=== PATIENT | male | born 1950 | race Caucasian/White ===

== ENCOUNTER 2017-07-01 13:43 | Inpatient (IN) | payer OTHER ==
[~2017-07-01] VITALS: Ht 177.8 cm; Wt 89.2 kg
[2017-07-01] MEDS ORDERED: SODIUM CHLORIDE 0.9% 1,000 ML IV ONE (14:21)
[2017-07-01] MEDS ORDERED: OXYC1TAB7 PO (14:25)
[2017-07-01] MEDS ORDERED: ATOR-2 PO (14:25)
[2017-07-01] MEDS ORDERED: METF500T4 PO (14:25)
[2017-07-01] MEDS ORDERED: PIOG30TA3 PO (14:25)
[2017-07-01] MEDS ORDERED: AMLO10TA2 PO (14:25)
[2017-07-01] MEDS ORDERED: HYDR25TA6 PO (14:25)
[2017-07-01] MEDS ORDERED: GEMF600T3 PO (14:25)
[2017-07-01] MEDS ORDERED: ALLO300T PO (14:25)
[2017-07-01] MEDS ORDERED: METOPROLOL 1 MG/ML, 5ML IVPush ONE (14:30)
[2017-07-01] MEDS ORDERED: SODIUM CHLORIDE FLUSH 10ML SYR IVF ONE (14:30)
[2017-07-01] MEDS ORDERED: METOPROLOL 1 MG/ML, 5ML ONE (14:56)
[2017-07-01 15:05] LABS: HEMATOCRIT 42.2 % (39.2-51.8); HEMOGLOBIN 14.3 g/dL (13.7-18.0); WHITE BLOOD COUNT 5.9 x10^3/uL (3.4-10)
[2017-07-01 15:12] LABS: ASPARTATE AMINO TRANSFERASE 32 U/L (15-37); BLOOD UREA NITROGEN 23 mg/dL (7-18)
[2017-07-01 15:19] LABS: IS PT STATUS REG ER OR PRE ER? YES
[2017-07-01] MEDS ORDERED: HEPARIN 25,000 UNITS/500ML PMX 500 ML ONE (16:17)
[2017-07-01] MEDS ORDERED: HEPARIN 5,000 UNITS/ML, 1ML ONE (16:17)
[2017-07-01] MEDS ORDERED: SODIUM CHLORIDE 0.9% 1,000 ML IV SCH (16:36)
[2017-07-01] MEDS: HEPARIN 25,000 UNITS/500ML PMX 500 ML IV PRN (16:40)
[2017-07-01] MEDS ORDERED: HEPARIN 5,000 UNITS/ML, 1ML IV ONE (17:00)
[2017-07-01] MEDS ORDERED: ONDANSETRON 2MG/ML, 2ML IVPush PRN (17:00)
[2017-07-01] MEDS ORDERED: METOPROLOL 1 MG/ML, 5ML IVPush PRN (17:00)
[2017-07-01] MEDS ORDERED: ACETAMINOPHEN 325 MG TABLET PO PRN (17:00)
[2017-07-01] MEDS ORDERED: morphine SULFATE 10 MG/ML, 1ML IVPush PRN (17:00)
[2017-07-01] MEDS ORDERED: ONDANSETRON ODT 4 MG PO PRN (17:00)
[2017-07-01 17:31] VITALS: BP 148/88
[2017-07-01] MEDS: INSULIN ASPART 100 UNITS/ML, PEN SQ-INSULIN SCH ×2 (18:17→20:53)
[2017-07-01 19:33] VITALS: BP 105/71
[2017-07-01] MEDS: ATORVASTATIN 80 MG TABLET PO SCH (20:52)
[2017-07-01 21:24] LABS: IS PT STATUS REG ER OR PRE ER? NO
[2017-07-01] MEDS: HEPARIN 5,000 UNITS/ML, 1ML IV PRN (23:04)
[2017-07-02 02:43] VITALS: BP 117/82
[2017-07-02 03:42] LABS: HEMATOCRIT 37.1 % (39.2-51.8); HEMOGLOBIN 12.6 g/dL (13.7-18.0); WHITE BLOOD COUNT 4.9 x10^3/uL (3.4-10)
[2017-07-02 03:52] LABS: BLOOD UREA NITROGEN 22 mg/dL (7-18)
[2017-07-02 03:56] LABS: ASPARTATE AMINO TRANSFERASE 21 U/L (15-37); IS PT STATUS REG ER OR PRE ER? NO
[2017-07-02] MEDS: INSULIN ASPART 100 UNITS/ML, PEN SQ-INSULIN SCH ×4 (07:00→21:22)
[2017-07-02 07:30] VITALS: BP 138/85
[2017-07-02 07:46] VITALS: BP 117/79
[2017-07-02] MEDS ORDERED: REGADENOSON 0.4 MG/5 ML SYRINGE ONE (08:20)
[2017-07-02] MEDS: ASPIRIN 325 MG TABLET EC PO SCH (08:26)
[2017-07-02] MEDS: GEMFIBROZIL 600 MG TABLET PO SCH (08:26)
[2017-07-02] MEDS: ALLOPURINOL 100 MG TABLET PO SCH (08:27)
[2017-07-02] MEDS: AMLODIPINE 5 MG TABLET PO SCH (08:31)
[2017-07-02] MEDS ORDERED: MAGNESIUM SULFATE PMX 2GM/50ML 50 ML IV ONE (10:00)
[2017-07-02 14:03] VITALS: BP 112/68
[2017-07-02] MEDS: HEPARIN 5,000 UNITS/ML, 1ML IV PRN (15:22)
[2017-07-02] MEDS: HEPARIN 25,000 UNITS/500ML PMX 500 ML IV PRN (15:28)
[2017-07-02] MEDS: POTASSIUM CHLORIDE 20 MEQ TAB.ER.PRT PO SCH (16:56)
[2017-07-02 19:05] VITALS: BP 118/73
[2017-07-02] MEDS: ATORVASTATIN 80 MG TABLET PO SCH (21:13)
[2017-07-03 01:59] VITALS: BP 120/75
[2017-07-03 04:10] LABS: HEMATOCRIT 38.4 % (39.2-51.8); WHITE BLOOD COUNT 4.5 x10^3/uL (3.4-10)
[2017-07-03 04:20] LABS: BLOOD UREA NITROGEN 21 mg/dL (7-18)
[2017-07-03] MEDS ORDERED: MAGNESIUM SULFATE PMX 2GM/50ML 50 ML IV ONE ×2 (05:30→10:00)
[2017-07-03] MEDS: ASPIRIN 325 MG TABLET EC PO SCH (06:02)
[2017-07-03 08:10] VITALS: BP 130/85
[2017-07-03] MEDS: AMLODIPINE 5 MG TABLET PO SCH (08:25)
[2017-07-03] MEDS: GEMFIBROZIL 600 MG TABLET PO SCH (08:25)
[2017-07-03] MEDS: POTASSIUM CHLORIDE 20 MEQ TAB.ER.PRT PO SCH (08:25)
[2017-07-03] MEDS: INSULIN ASPART 100 UNITS/ML, PEN SQ-INSULIN SCH (08:25)
[2017-07-03] MEDS: ALLOPURINOL 100 MG TABLET PO SCH (08:25)
[2017-07-03] MEDS ORDERED: ASPI-515 PO (09:51)
[2017-07-03] MEDS ORDERED: APIX5TAB PO (09:51)
[2017-07-03] MEDS ORDERED: METO25TA35 PO (09:53)
[2017-07-03] MEDS ORDERED: APIXABAN 5 MG TABLET PO SCH (10:00)
== END 2017-07-03 11:30 | disposition home or self-care (01) | DRG 308 ==
LOC: ED 14:48 → EDIP 15:30 → 5SO 17:21 → DCLOUNGE 07-03 11:10
PROVIDERS: ADMIT Hospitalist; ATTEND Family Medicine
DX: I48.91 Unspecified atrial fibrillation (principal); N17.0 Acute kidney failure with tubular necrosis; D68.59 Other primary thrombophilia; E83.42 Hypomagnesemia; D75.89 Other specified diseases of blood and blood-forming organs; E11.9 Type 2 diabetes mellitus without complications; E78.5 Hyperlipidemia, unspecified; E87.6 Hypokalemia; F17.290 Nicotine dependence, other tobacco product, uncomplicated; I10 Essential (primary) hypertension; Z96.652 Presence of left artificial knee joint; Z79.84 Long term (current) use of oral hypoglycemic drugs; Z79.01 Long term (current) use of anticoagulants; Z82.49 Family history of ischemic heart disease and other diseases of the circulatory system; Z88.0 Allergy status to penicillin; Z88.7 Allergy status to serum and vaccine
CPT/HCPCS: 36415; 71010; 78452; 80048; 80053; 80061; 82607; 82746; 82962; 83735; 83880; 84443; 84484; 85025; 85520; 85610; 93005; 93017; 93306; 96361; 96374; 96375; J1644; J1815; J2785; A9502; C9898; J3475; J7030

== ENCOUNTER 2018-11-23 10:12 | Emergency (ER) | payer OTHER ==
[~2018-11-23] VITALS: Ht 175.3 cm; Wt 88.0 kg
[~2018-11-23 10:12] MED LIST: ALLO300T PO; AMLO10TA8 PO; APIX5TAB PO; ASPI-515 PO; ATOR-2 PO; GEMF600T8 PO; HYDR25TA6 PO; METF500T17 PO; METO25TA35 PO; OXYC1TAB7 PO; PIOG30TA67 PO
--- NOTE | 2018-11-23 10:49 | NUR ---
[facility]
--- NOTE | 2018-11-23 10:50 | NUR ---
Pt changing to gown in ED room 3. NADN. No obvious defecits observed.
[2018-11-23 10:53] LABS: BASOPHILS # (AUTO) 0.03 x10^3/uL (0-0.1); BASOPHILS % (AUTO) 0 % (0-1); EOSINOPHILS # (AUTO) 0.15 x10^3/uL (0-0.4); EOSINOPHILS % (AUTO) 3 % (1-7); LYMPHOCYTES # (AUTO) 0.73 x10^3/uL (1-3.4); LYMPHOCYTES % (AUTO) 12 % (22-44); MD NO; MEAN CORPUSCULAR HEMOGLOBIN 33.3 pg (27.5-34.5); MEAN CORPUSCULAR HGB CONC 33.8 g/dL (33.2-36.2); MEAN CORPUSCULAR VOLUME 98.7 fL (81-97); MEAN PLATELET VOLUME 7.4 fL (7.4-10.4); MONOCYTES # (AUTO) 0.56 x10^3/uL (0.2-0.8); MONOCYTES % (AUTO) 9 % (2-9); NEUTROPHILS # (AUTO) 4.52 x10^3/uL (1.8-6.8); NEUTROPHILS % (AUTO) 76 % (42-75); PLATELET COUNT 287 x10^3/uL (130-400); RED BLOOD COUNT 4.21 x10^6/uL (4.38-5.82); RED CELL DISTRIBUTION WIDTH 14.6 % (9.4-14.8)
[2018-11-23 11:00] LABS: INTERNATIONAL NORMALIZED RATIO 1.09 (0.93-1.1); PROTHROMBIN TIME 11.4 Seconds (9.6-11.5)
[2018-11-23 11:04] LABS: ALBUMIN 4.5 g/dL (3.4-5.0); ANION GAP 8 mmol/L (5-15); CHLORIDE 104 mmol/L (98-107)
[2018-11-23 11:09] LABS: ALANINE AMINOTRANSFERASE 36 U/L (12-78); ALKALINE PHOSPHATASE 114 U/L (45-117); BILIRUBIN,TOTAL 0.6 mg/dL (0.2-1.0); CREATININE 1.16 mg/dL (0.7-1.3); TOTAL PROTEIN 8.7 g/dL (6.4-8.2)
--- NOTE | 2018-11-23 11:23 | NUR ---
Pt presents to ED with c/o right flank pain that has "moved to the front of my abdomen and groin, and I have this bulge here (right flank and right abdomen to right groin, non-tender to palpation)." Pt denies pain with urination, burning with urination, or fevers. Pt denies n/v/d. Pt denies cp, sob, trauma. Pt ambulates with steady gait and balance to bathroom for urine sample.
--- NOTE | 2018-11-23 11:25 | NUR ---
Pt back to room from restroom and connected to manager cardiac, NIBP, and continous pulse ox. All safety measures in place. Call light within reach.
[2018-11-23 11:34] VITALS: BP 152/65
--- NOTE | 2018-11-23 11:39 | NUR ---
PT HAS LABS HOWEVER CT IS WAITING ON IV INSERTION
[2018-11-23 11:54] LABS: MICROSCOPIC AUTO
[2018-11-23 12:01] LABS: CULTURE INDICATED? NO
[2018-11-23] MEDS ORDERED: OMNIPAQUE 350 MG/ML, 100ML BOTTLE ONE (12:27)
--- NOTE | 2018-11-23 13:49 | NUR ---
Sergey given discharge instructions and they have confirmed that they understand the instructions. Patient ambulatory with steady gait. Pt left with all personal belongings, discharge paperwork, and prescriptions.
== END 2018-11-23 14:20 | disposition home or self-care (01) ==
LOC: ED 13:30
DX: R10.11 Right upper quadrant pain (principal); R10.31 Right lower quadrant pain; I10 Essential (primary) hypertension; E11.9 Type 2 diabetes mellitus without complications; I48.91 Unspecified atrial fibrillation; E78.5 Hyperlipidemia, unspecified; F17.200 Nicotine dependence, unspecified, uncomplicated
CPT/HCPCS: 36415; 74177; 80053; 81001; 83690; 85025; 85610; 99284; Q9967

== ENCOUNTER 2018-12-04 10:43 | Emergency (ER) | payer OTHER ==
[~2018-12-04] VITALS: Ht 175.3 cm; Wt 89.7 kg
--- NOTE | 2018-12-04 11:06 | NUR ---
PT AMBULATED INDEPENDENTLY TO ED ROOM 28 FROM LOBBY IN NAD W/ FAMILY MEMBER, PT REPORTS ABD PAIN W/ BULGE X 2 WEEKS. PT STATES HE HAS BEEN EVALUATED IN THE ED FOR SAME AND SEEN HIS PCP TWICE WITHOUT DEFINITIVE DIAGNOSIS.
--- NOTE | 2018-12-04 11:37 | NUR ---
US AT BEDSIDE
--- NOTE | 2018-12-04 11:37 | NUR ---
Gris hodges in [facility] - 12/04/18 at 1137 by MISHA YOLANDAAY AT BEDSIDE
[2018-12-04 12:13] LABS: BASOPHILS # (AUTO) 0.03 x10^3/uL (0-0.1); BASOPHILS % (AUTO) 1 % (0-1); EOSINOPHILS # (AUTO) 0.15 x10^3/uL (0-0.4); EOSINOPHILS % (AUTO) 3 % (1-7); LYMPHOCYTES # (AUTO) 0.79 x10^3/uL (1-3.4); LYMPHOCYTES % (AUTO) 16 % (22-44); MD NO; MEAN CORPUSCULAR HEMOGLOBIN 34.1 pg (27.5-34.5); MEAN CORPUSCULAR HGB CONC 34.7 g/dL (33.2-36.2); MEAN CORPUSCULAR VOLUME 98.3 fL (81-97); MEAN PLATELET VOLUME 7.7 fL (7.4-10.4); MONOCYTES # (AUTO) 0.53 x10^3/uL (0.2-0.8); MONOCYTES % (AUTO) 10 % (2-9); NEUTROPHILS # (AUTO) 3.62 x10^3/uL (1.8-6.8); NEUTROPHILS % (AUTO) 71 % (42-75); PLATELET COUNT 253 x10^3/uL (130-400); RED CELL DISTRIBUTION WIDTH 14.2 % (9.4-14.8)
[2018-12-04 12:22] LABS: ANION GAP 9 mmol/L (5-15); CALCIUM 9.2 mg/dL (8.5-10.1); CHLORIDE 106 mmol/L (98-107)
[2018-12-04 12:24] LABS: ALANINE AMINOTRANSFERASE 39 U/L (12-78); CREATININE 1.27 mg/dL (0.7-1.3)
[2018-12-04 12:33] LABS: ALKALINE PHOSPHATASE 90 U/L (45-117); BILIRUBIN,TOTAL 0.3 mg/dL (0.2-1.0); TOTAL PROTEIN 7.4 g/dL (6.4-8.2)
--- NOTE | 2018-12-04 12:38 | NUR ---
PT UP TO RESTROOM TO PROVIDE UA
[2018-12-04 13:15] LABS: MICROSCOPIC NOT IND
[2018-12-04 13:19] LABS: CULTURE INDICATED? NO
--- NOTE | 2018-12-04 14:26 | NUR ---
BREAK RN: Patient/Caregiver given discharge instructions and they have confirmed that they understand the instructions. Patient ambulatory with steady gait. PT LEFT WITH ALL PERSONAL BELONGINGS.
[2018-12-04 14:27] VITALS: BP 161/74
== END 2018-12-04 14:29 | disposition home or self-care (01) ==
LOC: ED 11:01
DX: K43.6 Other and unspecified ventral hernia with obstruction, without gangrene (principal); I10 Essential (primary) hypertension; E11.9 Type 2 diabetes mellitus without complications; E78.5 Hyperlipidemia, unspecified; I48.91 Unspecified atrial fibrillation
CPT/HCPCS: 36415; 76700; 80053; 81003; 83690; 85025; 99284